=== PATIENT | female | born 1980 ===

== ENCOUNTER 2019-07-05 04:55 | Inpatient (IN) ==
[2019-07-05] MEDS ORDERED: ceFAZolin 3,000 MG in SYRINGE 1 EACH IV ONE (05:00)
[2019-07-05] MEDS ORDERED: FAMOTIDINE 20 MG/2 ML VIAL IV PRN (05:05)
[2019-07-05] MEDS ORDERED: CITRIC ACID/SODIUM CITRATE 30 ML UDCUP PO PRN (05:05)
[2019-07-05] MEDS ORDERED: LACTATED RINGERS 1,000 ML IV SCH ×2 (05:30→10:30)
[2019-07-05 05:51] LABS: Basophils % 0.4 % (0.0-0.8); Eosinophils # 0.1 10*3/uL (0.0-0.87); Eosinophils % 1.9 % (0.00-10.9); Hematocrit 34.9 VOL% (35.7-47.0); Hemoglobin 11.4 GM/DL (12.0-16.0); Immature Granulocytes % 0.4 %; Immature Granulocytes Absolute 0.03 #; Lymphocytes # 1.9 10*3/uL (1.4-4.0); Lymphocytes % 25.5 % (21.3-54.2); Mean Corpuscular HGB Conc 32.7 GM/DL (32-36); Mean Corpuscular Volume 90.6 FL (87-102); Mean Platelet Volume 10.3 FL (9.6-12.0); Neutrophils % 65.8 % (38.7-73.9); Platelet Count 246 T/CUMM (130-400); Red Blood Count 3.85 MC/CUMM (3.8-5.5); Red Cell Distribution Width 14.3 % (9.3-17.3); White Blood Count 7.3 T/CUMM (4-12)
[2019-07-05 06:05] LABS: INR 0.9; PT Patient Result 9.8 SECS (9.6-12.2); Partial Thromboplastin Time 25.8 SECS (20.8-36.0)
[2019-07-05 06:17] LABS: Albumin 2.4 G/DL (3.4-5.0); Bilirubin,Total 0.5 MG/DL (0.2-1.0); Calcium 8.7 MG/DL (8.5-10.1); Osmolality,Calculated 278.3 MOS/KG (273-304); Total Protein 7.4 G/DL (6.4-8.3)
[2019-07-05] MEDS ORDERED: PHENYLEPHRINE 1 MG/10 ML SYRINGE IV ONE (07:24)
[2019-07-05] MEDS ORDERED: ONDANSETRON 4 MG/2 ML VIAL ONE (07:25)
[2019-07-05] MEDS ORDERED: BUPIVACAINE SPINAL 0.75% 2 ML AMP SPINAL ONE (07:25)
[2019-07-05] MEDS ORDERED: fentaNYL 100 MCG/2 ML VIAL ONE (07:25)
[2019-07-05] MEDS ORDERED: MORPHINE 10 MG/10 ML VIAL ONE (07:25)
[2019-07-05] MEDS ORDERED: OXYTOCIN 10 UNIT/ML VIAL IM ONE (07:32)
[2019-07-05] MEDS ORDERED: OXYTOCIN/LR 30 UNIT/1,000 ML BAG IV ONE (07:32)
[2019-07-05] MEDS ORDERED: LACTATED RINGERS 1,000 ML IV ONE (08:38)
[2019-07-05] MEDS ORDERED: ACETAMINOPHEN 325 MG TABLET PO PRN (10:11)
[2019-07-05] MEDS ORDERED: IBUPROFEN 800 MG TABLET PO PRN (10:11)
[2019-07-05] MEDS ORDERED: OXYTOCIN/LR 20 UNIT/1,000 ML BAG IV ONE (10:11)
[2019-07-05] MEDS ORDERED: ONDANSETRON 4 MG/2 ML VIAL IV PRN (10:11)
[2019-07-05] MEDS ORDERED: RHO(D) IMMUNE GLOBULIN 300 MCG SYRINGE IM ONE (10:11)
[2019-07-05] MEDS ORDERED: SIMETHICONE CHEW 80 MG TABLET PO PRN (10:11)
[2019-07-05] MEDS ORDERED: MAGNESIUM HYDROXIDE SUSP 30 ML UDCUP PO PRN (10:11)
[2019-07-05 10:18] LABS: Cord Arterial Blood HCO3 17.9 MMOL/L; Cord Venous Blood HCO3 21.4 MMOL/L; Cord Venous Blood PO2 31.3 MMHG
[2019-07-05 10:25] LABS: Apearance,Urine CLEAR (Clear); Bilirubin,Urine Negative (Negative); Blood, Urine Negative (Negative); Glucose,Urine (UA) Negative (Negative); Ketones,Urine Negative (Negative); Mucus,Urine Occasional /LPF (Occasional); Nitrite,Urine Negative (Negative); Protein,Urine Negative; RBC,Urine <1 /HPF (0-4); Urine Color Yellow (Yellow); Urine Specific Gravity 1.009 (1.001-1.035); Urine Urobilinogen < 2.0 EU/DL (0.2-1.0); WBC,Urine 1 /HPF (0-6)
[2019-07-05] MEDS ORDERED: ceFAZolin 1,000 MG in SYRINGE 1 EACH IV SCH (17:00)
[2019-07-05 18:04] LABS: Basophils % 0.2 % (0.0-0.8); Eosinophils % 0.1 % (0.00-10.9); Hematocrit 33.1 VOL% (35.7-47.0); Hemoglobin 10.7 GM/DL (12.0-16.0); Immature Granulocytes % 0.6 %; Immature Granulocytes Absolute 0.07 #; Lymphocytes # 0.9 10*3/uL (1.4-4.0); Lymphocytes % 7.1 % (21.3-54.2); Mean Corpuscular HGB Conc 32.3 GM/DL (32-36); Mean Corpuscular Volume 91.9 FL (87-102); Mean Platelet Volume 10.2 FL (9.6-12.0); Monocytes % 3.4 % (1.7-12.7); Neutrophils % 88.6 % (38.7-73.9); Platelet Count 219 T/CUMM (130-400); Red Cell Distribution Width 14.3 % (9.3-17.3); White Blood Count 12.5 T/CUMM (4-12)
[2019-07-05] MEDS: DOCUSATE SODIUM 100 MG CAPSULE PO SCH (21:43)
[2019-07-06 05:28] LABS: Basophils % 0.3 % (0.0-0.8); Eosinophils # 0.1 10*3/uL (0.0-0.87); Eosinophils % 0.9 % (0.00-10.9); Hematocrit 28.9 VOL% (35.7-47.0); Hemoglobin 9.5 GM/DL (12.0-16.0); Immature Granulocytes % 0.4 %; Immature Granulocytes Absolute 0.04 #; Lymphocytes % 19.9 % (21.3-54.2); Mean Corpuscular HGB Conc 32.9 GM/DL (32-36); Mean Corpuscular Volume 90.6 FL (87-102); Mean Platelet Volume 10.2 FL (9.6-12.0); Monocytes % 6.3 % (1.7-12.7); Neutrophils % 72.2 % (38.7-73.9); Platelet Count 196 T/CUMM (130-400); Red Blood Count 3.19 MC/CUMM (3.8-5.5); Red Cell Distribution Width 14.2 % (9.3-17.3); White Blood Count 9.9 T/CUMM (4-12)
[2019-07-06] MEDS: AMOXICILLIN 500 MG CAPSULE PO SCH ×3 (08:53→23:30)
[2019-07-06] MEDS: MULTIVITAMIN (PRENATAL) TABLET PO SCH (08:57)
[2019-07-06] MEDS: DOCUSATE SODIUM 100 MG CAPSULE PO SCH ×2 (08:57→21:25)
[2019-07-07] MEDS: AMOXICILLIN 500 MG CAPSULE PO SCH (05:51)
[2019-07-07 08:15] VITALS: BP 128/77
[2019-07-07] MEDS: DOCUSATE SODIUM 100 MG CAPSULE PO SCH (08:54)
[2019-07-07] MEDS: MULTIVITAMIN (PRENATAL) TABLET PO SCH (08:54)
== END 2019-07-07 12:20 | disposition home or self-care (01) | DRG 540 ==
LOC: N.LDOUT 04:55 → N.LD 04:56 → N.OB 14:23
PROVIDERS: ADMIT Obstetrics & Gynecology; ATTEND Obstetrics & Gynecology
PROC: LDCSECT (ICD-10-PCS; 2019-07-05 08:30)